=== PATIENT | male | born 1935 | race Caucasian/White ===

== ENCOUNTER 2017-08-29 08:26 | Emergency (ER) | payer MEDICARE, BC ==
[2017-08-29] MEDS ORDERED: Metoclopramide 10 MG/2 ML SDV IVPUSH ONE (08:53)
[2017-08-29] MEDS ORDERED: HYDROmorphone 0.5 MG/0.5 ML Syringe IVPUSH ONE (08:53)
--- NOTE | 2017-08-29 08:57 | EDM.PDOC ---
ED HPI GENERAL MEDICAL PROBLEM - General Chief Complaint: Syncope Stated Complaint: BAD HEAD PAIN/DIZZY Time Seen by Provider: 08/29/17 08:51 Source of Information: Reports: Patient, Family (spouse) History Limitations: Reports: No Limitations - History of Present Illness INITIAL COMMENTS - FREE TEXT/NARRATIVE: 82-year-old gentleman attends the ED after developing acute onset of dizziness with occipital headache while seated in restoration. States she was doing the grocery this morning and when he went to sit down he developed sudden onset of occipital headache associated diaphoresis mild nausea no vomiting. He felt so unwell they left the restoration and his symptoms persisted until he got to the hospital. At rest he is asymptomatic. He no longer feels nauseated but he still has a headache which she relates is 5 out of 10 primarily neck supple aspect of his head. Mild associated pain at the base of his neck and base of the skull. No recent falls or closed head injuries. He takes no blood thinners. Wears bilateral hearing aids. No worsening of tinnitus today in either ear. He takes no medications in the morning other than Metamucil. He has not yet eaten any breakfast. When leaving the restoration she was a little bit off balance and required assistance to walk with his . Onset: Today Onset Date: 08/29/17 Onset Time: 08:00 Duration: Minutes: Location: Reports: Head (Mild nausea.) Quality: Reports: Ache, Pressure Severity: Moderate (Rates pain is 5-6 out of 10.) Improves with: Reports: Rest (Not moving.) Worsens with: Reports: Movement Context: Denies: Activity, Exercise, Lifting, Sick Contact, Trauma Associated Symptoms: Reports: No Other Symptoms. Denies: Confusion, Chest Pain , Cough, cough w sputum, Diaphoresis, Fever/Chills, Headaches, Loss of Appetite , Malaise, Nausea/Vomiting, Rash, Seizure, Shortness of Breath, Syncope, Weakness Treatments [employer]: Reports: Other (see below) (None.) Headache Pain Score (Numeric/FACES): 6 - Related Data Allergies Allergy/AdvReac Type Severity Reaction Status Date / Time No Known Allergies Allergy Verified 08/29/17 08:41 Home Meds: Home Meds Meclizine [Antivert] 25 mg PO TID #15 tablet 08/29/17 [Rx] Social & Family History - Tobacco Use Smoking Status *Q: Former Smoker (quit 1975 after 20 pack year hx) Years of Tobacco use: 20 Month Tobacco Last Used: 40 years ago - Alcohol Use Days Per Week of Alcohol Use: 0 Number of Drinks Per Day: 0 Total Drinks Per Week: 0 - Recreational Drug Use Recreational Drug Use: No Drug Use in Last 12 Months: No - Living Situation & Occupation Living situation: Reports: Occupation: Retired ED ROS GENERAL - Review of Systems Review Of Systems: See Below Constitutional: Reports: Diaphoresis, Decreased Appetite. Denies: Fever, Chills , Malaise, Weakness, Fatigue HEENT: Reports: No Symptoms, Vertigo Respiratory: Reports: No Symptoms (One previous attack in the past.) Cardiovascular: Reports: No Symptoms Endocrine: Reports: No Symptoms GI/Abdominal: Reports: Nausea (Mild nausea with no vomiting). Denies: Abdominal Pain : Reports: Frequency, Other (Nocturia 2.) Musculoskeletal: Reports: Joint Pain Skin: Reports: No Symptoms (Knees and hips and low back at times) Neurological: Reports: Dizziness, Headache (Mild dizziness which I interpret as vertigo this morning), Difficulty Walking (Mild.). Denies: Confusion, Numbness , Paresthesia, Pre-Existing Deficit, Seizure, Syncope, Tingling, Tremors, Trouble Speaking, Weakness, Change in Speech, Gait Disturbance Psychiatric: Reports: No Symptoms Hematologic/Lymphatic: Reports: No Symptoms ED EXAM, DIZZINESS - Physical Exam Exam: See Below Exam Limited By: No Limitations General Appearance: Alert, WD/WN, No Apparent Distress Eye Exam: Bilateral Eye: Normal Inspection, Nystagmus (no nystagmus.) Ears: Normal External Exam, Normal TMs, Other (Wears bilateral hearing aids. The ear canals are clear and patent.) Throat/Mouth: Normal Inspection, Normal Lips, Normal Teeth, Normal Oropharynx, Other Head Exam: Atraumatic, Normocephalic (Uvula is midline) Neck: Normal Inspection, Supple, Non-Tender, Full Range of Motion. No: Lymphadenopathy (L), Lymphadenopathy (R) Respiratory/Chest: No Respiratory Distress, Lungs Clear, Normal Breath Sounds, No Accessory Muscle Use, Respiratory Distress (Mild tachypnea at rest. Mildly anxious.) Cardiovascular: Normal Peripheral Pulses (No surgical scars.), Regular Rate, Rhythm, No Edema, No Gallop, No Murmur GI/Abdominal: Normal Bowel Sounds, Soft, Non-Tender, No Organomegaly, No Distention, No Abnormal Bruit, No Mass, Pelvis Stable, Other Neurological: Alert, Normal Mood/Affect, Normal Dorsiflexion, CN II-XII Intact, Normal Plantar Flexion, Normal Gait, Normal Reflexes, No Motor/Sensory Deficits , Oriented x 3 Back Exam: Normal Inspection, Full Range of Motion Extremities: Normal Inspection, Normal Range of Motion, Non-Tender, No Pedal Edema Psychiatric: Normal Affect, Normal Mood Skin Exam: Warm, Dry, Intact, Normal Color, No Rash EKG INTERPRETATION EKG Date: 08/29/17 Time: 08:40 Rhythm: Other (Sinus bradycardia at 53/m.) Rate (Beats/Min): 53 (First-degree AV block) [place]: Normal P-Wave: Present (First-degree AV block) QRS: Other (Early R-wave transition.) ST-T: Normal QT: Prolonged Course - Vital Signs Last Recorded V/S: Last Vital Signs Temp 36.1 C 08/29/17 08:26 Pulse 50 L 08/29/17 08:26 Resp 20 08/29/17 08:26 BP 137/76 08/29/17 08:26 Pulse Ox 96 08/29/17 08:26 - Orders/Labs/Meds Labs: Laboratory Tests 08/29/17 08/29/17 Range/Units 09:10 09:10 WBC 5.77 (4.23-9.07) K/mm3 RBC 4.33 L (4.63-6.08) M/mm3 Hgb 14.0 (13.7-17.5) gm/L Hct 41.2 (40.1-51.0) % MCV 95.2 H (79.0-92.2) fl MCH 32.3 H (25.7-32.2) pg MCHC 34.0 (32.2-35.5) g/dl RDW Std Deviation 47.9 H (35.1-43.9) fL Plt Count 223 (163-337) K/mm3 MPV 9.2 L (9.4-12.3) fl Neutrophils % (Manual) 62 H (40-60) % Band Neutrophils % 0 (0-10) % Lymphocytes % (Manual) 36 (20-40) % Atypical Lymphs % 0 % Monocytes % (Manual) 1 L (2-10) % Eosinophils % (Manual) 1 (0.8-7.0) % Basophils % (Manual) 0 L (0.2-1.2) Platelet Estimate Adequate RBC Morph Comment Normal Sodium 143 (136-145) mEq/L Potassium 4.4 (3.5-5.1) mEq/L Chloride 106 (98-107) mEq/L Carbon Dioxide 28 (21-32) mEq/L Anion Gap 13.4 (5-15) BUN 20 H (7-18) mg/dL Creatinine 1.4 H (0.7-1.3) mg/dL Est Cr Clr Drug Dosing 46.19 mL/min Estimated GFR (MDRD) 49 (>60) mL/min BUN/Creatinine Ratio 14.3 (14-18) Glucose 129 H (83-115) mg/dL Calcium 8.9 (8.5-10.1) mg/dL Magnesium 2.2 (1.8-2.4) mg/dl Total Bilirubin 0.4 (0.2-1.0) mg/dL AST 26 (15-37) U/L ALT 39 (16-63) U/L Alkaline Phosphatase 82 (46-116) U/L Total Protein 7.5 (6.4-8.2) g/dl Albumin 3.7 (3.4-5.0) g/dl Globulin 3.8 gm/dL Albumin/Globulin Ratio 1.0 (1-2) Meds: Medications Discontinued Medications Generic Name Dose Route Start Last Admin Trade Name Freq PRN Reason Stop Dose Admin Hydromorphone HCl 0.5 mg 08/29/17 08:53 08/29/17 09:26 Dilaudid IVPUSH 08/29/17 08:54 0.5 mg ONETIME ONE Administration Sodium Chloride 1,000 mls @ 100 mls/hr 08/29/17 09:00 08/29/17 09:24 Normal Saline IV 100 mls/hr ASDIRECTED DUSTIN Administration Metoclopramide HCl 7.5 mg 08/29/17 08:53 08/29/17 09:22 Reglan IVPUSH 08/29/17 08:54 7.5 mg ONETIME ONE Administration - Radiology Interpretation Free Text/Narrative:: 82-year-old male presents to the ED with sudden onset of occipital headache associate with a breakout of significant diaphoresis with mild nausea. He didn' t appear to have some mild vertigo associated with these symptoms. No vomiting. Neuro exam at this time is completely normal with finger to nose and rapid alternating movements normal no nice diagnosed. Headache is rated as 5-6 out of 10 mostly occipital. My impression is that he suffered a per vertigo attack precipitating the diaphoresis. However the headache cannot be explained by this. While CT head done and routine labs. Given Reglan 7.5 mils grams IV with Dilaudid 0.5 mg IV for headache and nausea relief. - Re-Assessments/Exams Free Text/Narrative Re-Assessment/Exam: 08/29/17 09:29 CT of the head is completed. It reveals diffuse small vessel ischemic changes in both basal ganglia and mild dilatation of the lateral ventricles compatible with senescent changes. There is no acute bleeding in the occipital cortex or in the cerebellum. There is evidence of previous right- sided craniotomy noted. 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 08/29/17 09:52Labs are back. Total white count is 5.77. Differential pending hemoglobin 14.0 hematocrit of 41.2 platelets normal 223,000. Chemistry is essentially completely normal other than a mildly elevated creatinine at 1.4 EGFR is 49. Glucose 129. Calcium 8.9 magnesium normal at 2.2. Normal liver function . 08/29/17 10:07 patient reports headache much improved. We had a mild walking the hallway to make sure that his balance is been restored and he did fine. Therefore he will be discharged to home. I will write a prescription for meclizine 25 mg every 8 hours when necessary if he develops further symptoms. He 's had 1 free previous bout of vertigo in the past. His will be doing the driving today. Departure - Departure Time of Disposition: 10:08 Disposition: Home, Self-Care 01 Condition: Fair Clinical Impression: Benign paroxysmal vertigo, unspecified ear - Discharge Information Prescriptions: Meclizine [Antivert] 25 mg PO TID #15 tablet Instructions: Vertigo, [id number] Referrals: Anup Grossman MD [Primary Care Provider] - Forms: ED Department Discharge Additional Instructions: Evaluation the emergency room this morning in regards to development of a headache in the back of your head associated with sudden onset of diaphoresis sweats and perhaps mild nausea. This for she to leave the restoration. Since was noted to be slightly offkilter. Examination here was found to be essentially normal. CT of the brain was carried out due to the reported sudden onset of significant headache. 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 There are no new changes. Certainly no evidence of stroke. Impression is this is likely a atypical vertigo attack in that she did not get nausea or vomiting just got the diaphoresis that often precedes vomiting. You're at risk of similar attacks occurring over the next few days. Usually this occurs with rapid change of movement of the head or neck or looking up looking downwards, getting in and out of bed etc. It may also be your one and only attack. If you do develop further attacks and I would suggest filling prescription for meclizine 25 mg every 8 hours for 5 consecutive days to bring the vertigo under control. Time fixes his problem such as rolling over in bed. The medication only controls the symptoms. Follow-up with personal physician if any further problems occur.
[2017-08-29] MEDS ORDERED: Sodium Chloride 0.9% 1,000 ML IV SCH (09:00)
--- NOTE | 2017-08-29 09:34 | CT ---
Head CT Technique: Multiple axial sections through the brain were obtained. Intravenous contrast was not utilized. Comparison: Prior head CT study of 06/05/13. Findings: Ventricles along with basal cisterns and sulci over the convexities are mildly prominent. Diminished density is noted within the periventricular and subcortical white matter compatible with small vessel ischemic demyelination change. Minimal calcifications are noted within the basal ganglia. No evidence of intracranial hemorrhage. No midline shift or mass effect is seen. Bone window settings were reviewed which shows an opacified left sphenoid sinus which is a stable finding from prior head CT. No acute calvarial abnormality is appreciated. Previous right-sided craniotomy is noted. Impression: 1. Mild senescent change as noted above. Chronic sinus findings. 2. Nothing acute is identified on noncontrast head CT study. Diagnostic code #2
== END 2017-08-29 10:22 | disposition home or self-care (01) ==
LOC: SUPCPDRO 08:26 → JD.ED 08:26
DX: H81.10 Benign paroxysmal vertigo, unspecified ear (principal); I67.82 Cerebral ischemia; Z87.891 Personal history of nicotine dependence
CPT/HCPCS: 36415; 70450; 80053; 83735; 85025; 93005; 96361; 96374; 96375; 99285; J1170; J2765; J7040; 93010; 99284

== ENCOUNTER 2018-10-31 14:43 | Emergency (ER) | payer MEDICARE, BC ==
[2018-10-31] MEDS ORDERED: Sodium Chloride 0.9% 10 ML Syringe FLUSH PRN (15:32)
[2018-10-31] MEDS ORDERED: Sodium Chloride 0.9% 1,000 ML IV SCH (15:45)
--- NOTE | 2018-10-31 16:25 | EDM.PDOC ---
ED HPI GENERAL MEDICAL PROBLEM - General Chief Complaint: Neuro Symptoms/Deficits Stated Complaint: DIZZY Time Seen by Provider: 10/31/18 15:01 Source of Information: Reports: Patient, Family History Limitations: Reports: No Limitations - History of Present Illness INITIAL COMMENTS - FREE TEXT/NARRATIVE: The patient presents from home with a fall and dizziness. The patient has a history of vertigo. He says this is different. He was putting up a shelf and he had to look under it to put a screw in and he got dizzy and fell forward. He scrapped his elbows and the drill hit him in between his eyes. He did not hurt his neck, chest or abdomen. Later this afternoon he was on a step stool and he got dizzy again and fell. He has no headache or dizziness at this time. He has no chest pain, shortness of breath, abdominal pain, nausea or vomiting. He says he does have a history of benign positional vertigo. Onset: Sudden Duration: Hour(s): Location: Reports: Face Quality: Reports: Sharp Severity: Mild Improves with: Reports: None Worsens with: Reports: None Associated Symptoms: Reports: No Other Symptoms left elbow, bridge of nose Pain Score (Numeric/FACES): 4 - Related Data Allergies Allergy/AdvReac Type Severity Reaction Status Date / Time No Known Allergies Allergy Verified 10/31/18 15:05 Home Meds: Home Meds Meclizine [Antivert] 25 mg PO Q6H PRN #20 tab 10/31/18 [Rx] Past Medical History HEENT History: Reports: Cataract, Hard of Hearing, Impaired Vision, Other (See Below) Other HEENT History: wears eyeglasses, bilateral hearing aides. 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 - Infectious Disease History Infectious Disease History: Reports: Mumps, Rheumatic Fever - Past Surgical History HEENT Surgical History: Reports: Cataract Surgery Social & Family History - Family History Family Medical History: Noncontributory - Tobacco Use Smoking Status *Q: Former Smoker Used Tobacco, but Quit: No - Caffeine Use Caffeine Use: Reports: Coffee - Recreational Drug Use Recreational Drug Use: No - Living Situation & Occupation Living situation: Reports: Occupation: Retired ED ROS GENERAL - Review of Systems Review Of Systems: See Below Constitutional: Reports: No Symptoms HEENT: Reports: Vertigo, Other (Abrasion to the bridge of the nose) Respiratory: Reports: No Symptoms Cardiovascular: Reports: No Symptoms Endocrine: Reports: No Symptoms GI/Abdominal: Reports: No Symptoms : Reports: No Symptoms Musculoskeletal: Reports: Other (Abrasions to both elbows with pain upon palpation to the left elbow) ED EXAM, NEURO - Physical Exam Exam: See Below Exam Limited By: No Limitations General Appearance: Alert, No Apparent Distress Eye Exam: Bilateral Eye: Nystagmus Ears: Normal External Exam Nose: Other (Abrasion to the bridge of the nose) Head Exam: Normocephalic Neck: Normal Inspection, Supple, Non-Tender Respiratory/Chest: No Respiratory Distress, Lungs Clear, Normal Breath Sounds Cardiovascular: Regular Rate, Rhythm, No Edema, No Murmur GI/Abdominal: Soft, Non-Tender, No Organomegaly, No Mass Neurological: Alert, No Motor/Sensory Deficits, Oriented x 3 Extremities: Other (abrasions to both elbows. Edema to the left elbow with pain upon palpation.) Course - Vital Signs Last Recorded V/S: Last Vital Signs Temp 98.4 F 10/31/18 14:55 Pulse 69 10/31/18 14:55 Resp 18 10/31/18 14:55 BP 133/74 10/31/18 14:55 Pulse Ox 96 10/31/18 14:55 - Orders/Labs/Meds Orders: Active Orders 24 hr Category Date Time Status Cardiac Monitoring [RC] . DIRECTED Care 10/31/18 15:32 Active EKG Documentation Completion [RC] STAT Care 10/31/18 15:33 Active Peripheral IV Care [RC] . DIRECTED Care 10/31/18 15:33 Active Chest 1V Frontal [CR] Stat Exams 10/31/18 15:33 Taken Sodium Chloride 0.9% [Normal Saline] 1,000 ml Med 10/31/18 15:45 Active IV ASDIRECTED Sodium Chloride 0.9% [Saline Flush] Med 10/31/18 15:32 Active 10 ml FLUSH ASDIRECTED PRN Peripheral IV Insertion Adult [OM.PC] Stat Oth 10/31/18 15:32 Ordered Medication Orders Sodium Chloride (Normal Saline) 1,000 mls @ 125 mls/hr IV ASDIRECTED DUSTIN Last Admin: 10/31/18 16:30 Dose: 125 mls/hr Sodium Chloride (Saline Flush) 10 ml FLUSH ASDIRECTED PRN PRN Reason: Keep Vein Open Last Admin: 10/31/18 16:30 Dose: 10 ml Labs: Laboratory Tests 10/31/18 10/31/18 Range/Units 16:36 16:36 WBC 8.33 (4.23-9.07) K/mm3 RBC 3.79 L (4.63-6.08) M/mm3 Hgb 11.9 L (13.7-17.5) gm/L Hct 35.5 L (40.1-51.0) % MCV 93.7 H (79.0-92.2) fl MCH 31.4 (25.7-32.2) pg MCHC 33.5 (32.2-35.5) g/dl RDW Std Deviation 49.7 H (35.1-43.9) fL Plt Count 223 (163-337) K/mm3 MPV 9.1 L (9.4-12.3) fl Neut % (Auto) 67.1 (34.0-67.9) % Lymph % (Auto) 25.8 (21.8-53.1) % [place] % (Auto) 6.1 (5.3-12.2) % Eos % (Auto) 0.7 L (0.8-7.0) Baso % (Auto) 0.2 (0.1-1.2) % Neut # (Auto) 5.58 H (1.78-5.38) K/mm3 Lymph # (Auto) 2.15 (1.32-3.57) K/mm3 [place] # (Auto) 0.51 (0.30-0.82) K/mm3 Eos # (Auto) 0.06 (0.04-0.54) K/mm3 Baso # (Auto) 0.02 (0.01-0.08) K/mm3 Sodium 140 (136-145) mEq/L Potassium 4.4 (3.5-5.1) mEq/L Chloride 105 (98-107) mEq/L Carbon Dioxide 27 (21-32) mEq/L Anion Gap 12.4 (5-15) BUN 30 H (7-18) mg/dL Creatinine 1.3 (0.7-1.3) mg/dL Est Cr Clr Drug Dosing 48.91 mL/min Estimated GFR (MDRD) 53 (>60) mL/min BUN/Creatinine Ratio 23.1 H (14-18) Glucose 96 (83-115) mg/dL Calcium 8.8 (8.5-10.1) mg/dL Total Bilirubin 0.2 (0.2-1.0) mg/dL AST 17 (15-37) U/L ALT 31 (16-63) U/L Alkaline Phosphatase 79 (46-116) U/L Troponin I 0.021 (0.00-0.056) ng/mL Total Protein 6.9 (6.4-8.2) g/dl Albumin 3.3 L (3.4-5.0) g/dl Globulin 3.6 gm/dL Albumin/Globulin Ratio 0.9 L (1-2) Meds: Medications Generic Name Dose Route Start Last Admin Trade Name Freq PRN Reason Stop Dose Admin Sodium Chloride 1,000 mls @ 125 mls/hr 10/31/18 15:45 10/31/18 16:30 Normal Saline IV 125 mls/hr ASDIRECTED DUSTIN Administration Sodium Chloride 10 ml 10/31/18 15:32 10/31/18 16:30 Saline Flush FLUSH 10 ml ASDIRECTED PRN Administration Keep Vein Open Discontinued Medications Generic Name Dose Route Start Last Admin Trade Name Freq PRN Reason Stop Dose Admin Meclizine HCl 25 mg 10/31/18 16:19 10/31/18 16:29 Antivert PO 10/31/18 16:20 25 mg ONETIME ONE Administration - Re-Assessments/Exams Free Text/Narrative Re-Assessment/Exam: 10/31/18 16:25 I ordered an IV NS, antivert 25mg by mouth, labs, EKG, and a CT of his head. 10/31/18 17:[address] of his head looks good. His EKG shows a NSR with 1st degree HB. Nothing acute is seen. His Hgb is a little low at 11.9. His troponin is negative. This appears to be BPV. I will give him some antivert as needed. Departure - Departure Time of Disposition: 17:45 Disposition: Home, Self-Care 01 Condition: Good Clinical Impression: Benign paroxysmal vertigo, unspecified ear Qualifiers: Laterality: bilateral Qualified Code(s): H81.13 - Benign paroxysmal vertigo, bilateral - Discharge Information *PRESCRIPTION DRUG MONITORING PROGRAM REVIEWED*: No *COPY OF PRESCRIPTION DRUG MONITORING REPORT IN PATIENT FENG: No Prescriptions: Meclizine [Antivert] 25 mg PO Q6H PRN #20 tab PRN Reason: Dizziness Referrals: Anup Grossman MD [Primary Care Provider] - 1 Week Forms: ED Department Discharge Additional Instructions: Try to avoid quick movements with your head and position changes. Avoid step stools and ladders at this time. Take the antivert every 6 hours as needed for dizziness. Please return if you are worse. - My Orders Last 24 Hours: My Active Orders 10/31/18 15:32 Cardiac Monitoring [RC] . DIRECTED Sodium Chloride 0.9% [Saline Flush] 10 ml FLUSH ASDIRECTED PRN Peripheral IV Insertion Adult [OM.PC] Stat 10/31/18 15:33 EKG Documentation Completion [RC] STAT Peripheral IV Care [RC] . DIRECTED Chest 1V Frontal [CR] Stat 10/31/18 15:45 Sodium Chloride 0.9% [Normal Saline] 1,000 ml IV ASDIRECTED - Assessment/Plan Last 24 Hours: My Active Orders 10/31/18 15:32 Cardiac Monitoring [RC] . DIRECTED Sodium Chloride 0.9% [Saline Flush] 10 ml FLUSH ASDIRECTED PRN Peripheral IV Insertion Adult [OM.PC] Stat 10/31/18 15:33 EKG Documentation Completion [RC] STAT Peripheral IV Care [RC] . DIRECTED Chest 1V Frontal [CR] Stat 10/31/18 15:45 Sodium Chloride 0.9% [Normal Saline] 1,000 ml IV ASDIRECTED
--- NOTE | 2018-10-31 16:32 | CT ---
Head CT Technique: Multiple axial sections through the brain were obtained. Intravenous contrast was not utilized. Comparison: Prior head CT study of 08/29/17. Findings: Ventricles along with basal cisterns and sulci over the convexities are mildly prominent. Slight diminished density is noted within the periventricular and subcortical white matter compatible with small vessel ischemic demyelination change. No other abnormal parenchymal densities are seen. No evidence of intracranial hemorrhage. No midline shift or mass effect is seen. Bone window settings were reviewed which shows no acute calvarial abnormality. Old craniotomy is noted on the right side. No acute calvarial abnormality is seen. 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 Impression: 1. Mild senescent change. Sinus finding which is felt to be incidental. 2. No acute intracranial abnormality is identified. Diagnostic code #2
--- NOTE | 2018-11-01 07:42 | CR ---
Chest: PA view of the chest was obtained. Comparison: No previous study. Heart size is normal. Tortuous thoracic aorta seen. Lungs are clear. Bony structures are grossly intact. Impression: 1. Nothing acute is seen on PA chest x-ray. Diagnostic code #1
== END 2018-10-31 18:34 | disposition home or self-care (01) ==
LOC: JD.ED 14:43
DX: H81.13 Benign paroxysmal vertigo, bilateral (principal); Z87.891 Personal history of nicotine dependence
CPT/HCPCS: 36415; 70450; 71045; 80053; 84484; 85025; 93005; 96360; 99284; A9270; J7040

== ENCOUNTER 2022-07-05 10:40 | Emergency (ER) | payer MEDICARE, BC | END 2022-07-05 13:56 | disposition home or self-care (01) | LOC: JD.ED 10:40 | DX: S00.83XA Contusion of other part of head, initial encounter (principal); W01.198A Fall on same level from slipping, tripping and stumbling with subsequent striking against other object, initial encounter | CPT/HCPCS: 36415; 70450; 70450-26; 80053; 85025; 85610; 85730; 99284 ==

== ENCOUNTER 2023-12-10 08:39 | Emergency (ER) | payer MEDICARE, BC ==
[2023-12-10] MEDS: Sodium Chloride 0.9% 1,000 ML IV STA (10:38)
[2023-12-10] MEDS: Sodium Chloride 0.9% 10 ML Syringe FLUSH PRN (10:40)
[2023-12-10 10:44] LABS: BASOPHILS PERCENT AUTO 0.1 % (0.0-1.0); HEMATOCRIT 40.7 % (42.0-52.0); IMMATURE GRAN ABSOLUTE AUTO 0.06 K/mm3 (0.00-0.05); IMMATURE GRAN PERCENT AUTO 0.4 % (0.0-0.4); LYMPHOCYTES ABSOLUTE AUTO 2.3 K/mm3 (1.0-4.8); LYMPHOCYTES PERCENT AUTO 15.3 % (24.0-44.0); MEAN CORPUSCULAR HGB CONC 34.4 g/dl (32.0-36.0); MEAN PLATELET VOLUME 9.2 fl (9.4-12.4); MONOCYTES ABSOLUTE AUTO 0.7 K/mm3 (0.0-0.8); MONOCYTES PERCENT AUTO 4.9 % (0.0-8.0); NEUTROPHILS ABSOLUTE AUTO 11.7 K/mm3 (1.8-7.7); NEUTROPHILS PERCENT AUTO 79.3 % (41.0-71.0); PLATELET COUNT,PLT 249 K/mm3 (150-400); RED BLOOD CELL COUNT 4.24 M/mm3 (4.52-5.90); WHITE BLOOD CELL COUNT,WBC 14.82 K/mm3 (3.9-11.3)
[2023-12-10 11:22] LABS: A/G RATIO 0.9 (1-2); ALBUMIN 4.2 g/dl (3.4-5.0); ANION GAP 16.1 (5-15); BILIRUBIN TOTAL 0.9 mg/dL (0.2-1.0); BUN/CREATININE RATIO 27.7 (14-18); CALCIUM 9.4 mg/dL (8.5-10.1); CREATININE 1.3 mg/dL (0.7-1.3); EST CRCL DRUG DOSING (CG) 42.66 mL/min; POTASSIUM,K 4.1 mEq/L (3.5-5.1); PROTEIN TOTAL,TP 8.7 g/dl (6.4-8.2)
[2023-12-10] MEDS: Sodium Chloride 0.9% 10 ML Syringe FLUSH ONE (12:06)
[2023-12-10] MEDS: Iopamidol 612 MG/ML 100 ML Bottle IVPUSH ONE (12:06)
[2023-12-10 12:13] LABS: APPEARANCE,URINE CLEAR (Clear); BILIRUBIN,URINE NEGATIVE (Negative); COLOR,URINE DARK YELLOW (Yellow); GLUCOSE,URINE NEGATIVE (Negative); KETONES,URINE 1+ (Negative); LEUKOCYTE ESTERASE,URINE NEGATIVE (Negative); NITRITE,URINE NEGATIVE (Negative); OCCULT BLOOD,URINE TRACE-INTACT (Negative); PROTEIN,URINE 1+ (Negative); UROBILINOGEN,URINE 0.2 (0.2-1.0)
[2023-12-10 12:48] LABS: SQUAMOUS EPITHELIAL CELLS,UR 0-5 /hpf (0-5); WBC,URINE 0-5 /hpf (0-5)
[2023-12-10 12:49] LABS: BACTERIA,URINE MODERATE /hpf (FEW); MUCUS,URINE MODERATE /hpf (FEW)
== END 2023-12-10 14:00 | disposition home or self-care (01) ==
LOC: JD.ED 08:39
DX: K59.09 Other constipation (principal)
CPT/HCPCS: 36415; 74177; 80053; 81001; 83690; 85025; 87493; 96360; 99284; J3490; J7030; Q9967

== ENCOUNTER 2025-09-09 12:06 | Emergency (ER) | payer MEDICARE, BC ==
[2025-09-09 14:00] LABS: BASOPHILS ABSOLUTE AUTO 0.0 K/mm3 (0.0-0.2); BASOPHILS PERCENT AUTO 0.1 % (0.0-1.0); EOSINOPHILS ABSOLUTE AUTO 0.0 K/mm3 (0.0-0.4); EOSINOPHILS PERCENT AUTO 0.1 % (0.0-6.0); IMMATURE GRAN ABSOLUTE AUTO 0.02 K/mm3 (0.00-0.05); IMMATURE GRAN PERCENT AUTO 0.2 % (0.0-0.4); LYMPHOCYTES ABSOLUTE AUTO 2.3 K/mm3 (1.0-4.8); LYMPHOCYTES PERCENT AUTO 22.0 % (24.0-44.0); MEAN PLATELET VOLUME 9.4 fl (9.4-12.4); MONOCYTES ABSOLUTE AUTO 0.5 K/mm3 (0.0-0.8); MONOCYTES PERCENT AUTO 4.4 % (0.0-8.0); NEUTROPHILS ABSOLUTE AUTO 7.7 K/mm3 (1.8-7.7); NEUTROPHILS PERCENT AUTO 73.2 % (41.0-71.0); NRBC ABSOLUTE 0.00 (0.00-0.02); NRBC PERCENT 0.0 % (0.0-0.2); PLATELET COUNT,PLT 227 K/mm3 (150-400); RED BLOOD CELL COUNT 3.49 M/mm3 (4.52-5.90); WHITE BLOOD CELL COUNT,WBC 10.57 K/mm3 (3.9-11.3)
[2025-09-09 14:28] LABS: A/G RATIO 0.9 (1-2); ALANINE AMINOTRANSFERASE,ALT 29.0 U/L (16-63); BILIRUBIN TOTAL 0.6 mg/dL (0.2-1.0); BLOOD UREA NITROGEN,BUN 28.0 mg/dL (7-18); CARBON DIOXIDE,CO2 27.0 mEq/L (21-32); CHLORIDE,CL 111.0 mEq/L (98-107); CREATININE 1.2 mg/dL (0.7-1.3); EST CRCL DRUG DOSING (CG) 37.25 mL/min; ESTIMATED GFR 58.0 mL/min (>60); GLUCOSE RANDOM 97.0 mg/dL (70-99); POTASSIUM,K 4.4 mEq/L (3.5-5.1); PROTEIN TOTAL,TP 7.0 g/dl (6.4-8.2); SODIUM,NA 147.0 mEq/L (136-145)
[2025-09-09 14:44] LABS: ASPARTATE AMNIOTRANSFERASE,AST 40.0 U/L (15-37)
[2025-09-09] MEDS: Magnesium Citrate Solution 296 ML Bottle PO ONE (17:54)
== END 2025-09-09 17:59 | disposition home or self-care (01) ==
LOC: JD.ED 12:06
DX: K59.01 Slow transit constipation (principal)
CPT/HCPCS: 36415; 74019; 80053; 85025; 99283; A9270

== ENCOUNTER 2025-09-10 09:27 | Emergency (ER) | payer MEDICARE, BC ==
[2025-09-10] MEDS ORDERED: Sodium Chloride 0.9% 10 ML Syringe FLUSH PRN (10:32)
[2025-09-10] MEDS: Lactated Ringers 1,000 ML IV ONE (12:05)
== END 2025-09-10 15:02 | disposition home or self-care (01) ==
LOC: JD.ED 09:27
DX: K59.01 Slow transit constipation (principal); Z79.899 Other long term (current) drug therapy
CPT/HCPCS: 99283; A9270; J7030; J7120